=== PATIENT | male | born 1955 | race Caucasian/White ===

== ENCOUNTER → 2022-04-23 07:13 | Outpatient (CLI) | payer MEDICARE, BC, SELFPAY ==
--- NOTE | 2022-04-23 | DI.MRI.S_ITS ---
PROCEDURE: MR LUMBAR SPINE WO CON INDICATIONS: intervertebral disc degeneration, lumbar region TECHNIQUE: Noncontrast sagittal T1 spin echo and T2 fast echo, sagittal STIR, and T2 fast spin echo through the lumbar spine. In cases with scoliosis, additional coronal T2 fast spin echo may be performed. COMPARISON: [facility] [place], CR, XR LUMBAR SPINE WITH OBLIQUES PLUS FLEXION EXTENSION, 04/21/2022, 15:39. FINDINGS: Image quality: Excellent. Alignment and Curvature: There is normal bony alignment. Bone Marrow: Marrow is of normal overall signal. There is displacement of normal fatty bone marrow with red marrow. No acute vertebral body compression fractures. Spinal Cord: Conus medullaris terminates at the L1 level. Visualized cord demonstrates normal signal and size. Paraspinous Soft Tissues: No paravertebral masses. T12-L1: Normal appearance. L1-L2: Minimal disc bulge. Minimal facet hypertrophy. No canal stenosis or foraminal stenosis. L2-L3: Moderate to severe chronic disc height loss. Minimal disc bulge. Mild facet hypertrophy. No canal stenosis or foraminal stenosis. L3-L4: Minimal disc bulge. Facet hypertrophy. Borderline canal stenosis. No significant foraminal stenosis. L4-L5: Disc bulge. Facet hypertrophy. Borderline canal stenosis. [id number] bilateral foraminal stenosis. L5-S1: There is posterior disc bulge. There is a small focal disc protrusion immediately subjacent to the right S1 nerve root in the right lateral recess, slightly deviating the right S1 nerve root posteriorly. There is no central canal stenosis. No foraminal stenosis. IMPRESSION: 1. There is underlying multilevel facet hypertrophy. There is borderline canal stenosis at L3-L4 and L4-L5. 2. A small focal disc protrusion at L5-S1 slightly deviates the right S1 nerve root posteriorly. Comment: Does this patient have symptoms of right S1 radiculitis? Dictated by: Delmer Miles M.D. on 04/23/2022 at 9:34 Approved by: Delmer Miles M.D. on 04/23/2022 at 9:40
== END ==
PROVIDERS: PCP Family Medicine; Referring Provider Physical Medicine & Rehabilitation Pain Medicine; Visit Provider Physical Medicine & Rehabilitation Pain Medicine
DX: M51.36 Other intervertebral disc degeneration, lumbar region (principal); M51.27 Other intervertebral disc displacement, lumbosacral region
CPT/HCPCS: 72148

== ENCOUNTER → 2022-05-08 12:03 | Outpatient (CLI) | payer MEDICARE, BC, SELFPAY ==
--- NOTE | 2022-05-08 | DI.RAD.S_ITS ---
PROCEDURE: XR CHEST 2V INDICATIONS: Other specified cough TECHNIQUE: 2 views of the chest were acquired. COMPARISON: None. FINDINGS: Surgical changes and devices: None. Lungs and pleura: Lungs are clear on the left but shows a small degree of alveolar infiltration at the right lung base. No pleural effusions or pneumothorax. Mediastinum: Mediastinal contours are normal. Heart size is normal. Bones and chest wall: No suspicious bony abnormalities. Soft tissues appear unremarkable. IMPRESSION: Suspect mild or early pneumonia right lower lobe. Normal left lung. Dictated by: Michael Ibrahim M.D. on 05/08/2022 at 14:22 Approved by: Michael Ibrahim M.D. on 05/08/2022 at 14:23
== END ==
PROVIDERS: PCP Family Medicine; Referring Provider Family Medicine; Visit Provider Family Medicine
DX: R05.8 Other specified cough (principal); R09.81 Nasal congestion
CPT/HCPCS: 71046

== ENCOUNTER → 2022-09-03 12:47 | Outpatient (ROUT) | payer MEDICARE, BC, SELFPAY | PROVIDERS: PCP Family Medicine; Visit Provider Family Medicine | DX: D70.8 Other neutropenia (principal) ==

== ENCOUNTER → 2023-05-09 07:17 | Outpatient (CLI) | payer MEDICARE, BC, SELFPAY ==
--- NOTE | 2023-05-09 | DI.MRI.S_ITS ---
PROCEDURE: MR ANGIO HEAD WO CON INDICATIONS: Family history of stroke TECHNIQUE: Noncontrast axial 3-D [id number] MR angiogram, with 3-dimensional maximum intensity projection (MIP) reformats of the internal carotid arteries and posterior circulation then performed. COMPARISON: None. FINDINGS: Image quality: Excellent. Anterior circulation: Intracranial internal carotid arteries demonstrate normal size and intraluminal flow signal. The flow within the paired anterior cerebral arteries is normal and symmetric. The flow within the middle cerebral arteries is normal and symmetric. The anterior communicating artery is seen. No stenoses, occlusions, or aneurysms. Posterior circulation: Visualized portions of the vertebral arteries demonstrate normal caliber, and join to form a normal appearing basilar artery. The flow within the posterior cerebral arteries is normal and symmetric. Incidental note made of origin of the left posterior cerebral artery off the anterior circulation. No stenoses, occlusions, or aneurysms. IMPRESSION: Unremarkable MRA head. No stenosis, aneurysm, occlusion, or focal filling defect. Dictated by: Delmer Miles M.D. on 05/10/2023 at 12:19 Approved by: Delmer Miles M.D. on 05/10/2023 at 12:26
== END ==
PROVIDERS: PCP Family Medicine; Referring Provider Family Medicine; Visit Provider Family Medicine
DX: Z13.6 Encounter for screening for cardiovascular disorders (principal); Z82.3 Family history of stroke
CPT/HCPCS: 70544

== ENCOUNTER → 2023-12-27 14:48 | Outpatient (CLI) | payer MEDICARE, BC, SELFPAY ==
[2023-12-27 15:33] LABS: Hematocrit 43.7 % (41-53); Hemoglobin 15.7 g/dL (13.5-17.5); Mean Corpuscular HGB Conc 35.9 % (30-36); Mean Corpuscular Hemoglobin 33.7 PG (26-34); Mean Corpuscular Volume 93.7 fL (80-100); Platelet Count 189 X10^3/uL (150-400); Red Blood Cell Count 4.66 X10^6/uL (4.5-5.9); Red Cell Distribution Width 13.9 % (11.6-14.8); White Blood Cell Count 6.7 X10^3/uL (4.5-11.0)
[2023-12-27 16:15] LABS: Add Manual Diff / Slide Review YES
[2023-12-27 16:51] LABS: Neutrophils Absolute Manual 1139 /uL (3000-5900); RBC Morphology Normal Morphology; Total Cells Counted 100
[2023-12-27 18:06] LABS: Alanine Aminotransferase 38 IU/L (<50); Albumin 3.9 g/dL (3.5-5.0); Albumin Globulin Ratio 1.3 (1.0-2.8); Alkaline Phosphatase 79 U/L (38-126); Aspartate Aminotransferase 36 IU/L (17-59); BUN Creatinine Ratio 24.7 (6-22); Blood Urea Nitrogen 20 mg/dL (9-20); Calcium 9.1 mg/dL (8.4-10.2); Carbon Dioxide 28 mmol/L (22-32); Chloride 107 mmol/L (98-107); Estimated Glomerular Filt Rate > 60 mL/min (>60); Glucose 112 mg/dL (80-110); HEMOLYSIS < 15 (0-50); Sodium 139 mmol/L (137-145); Total Protein 6.9 g/dL (6.3-8.2)
== END ==
LOC: LAB 14:51
PROVIDERS: PCP Family Medicine; Referring Provider Internal Medicine Hematology & Oncology; Visit Provider Internal Medicine Hematology & Oncology
DX: C91.Z0 Other lymphoid leukemia not having achieved remission (principal)
CPT/HCPCS: 80053; 85007; 85025